=== PATIENT | male | born 1940 | race Caucasian/White ===

== ENCOUNTER → 2017-07-29 10:39 | Outpatient (CLI) | payer OTHER ==
[~2017-07-29] VITALS: Ht 152.4 cm; Wt 94.3 kg
[~2017-07-29 10:39] MED LIST: ASPIR 8181 MG PO; CELEBREX100 MG PO; COZAAR100 MG; COZAAR50 MG; COZAAR50 MG PO; GEMFIBROZIL600 MG PO; HYZAAR 100/25 T1 TAB; LIPITOR40 MG; LOPID 600 MG; MEDROLPACK PO; METFORMIN HCL500 MG PO; PLETAL100 MG PO; PROMETHAZINE W118 ML PO; TOPROL XL50 MG; TRENTAL 400 MG PO; ULTRAM50 MG PO; VASOFLEX D1 CA1 EACH; ZOCOR20 MG PO; ZOCOR40 MG; ZOCOR40 MG PO
== END | disposition home or self-care (01) ==
LOC: PPHC 10:39
DX: Z00.00 Encounter for general adult medical examination without abnormal findings (principal); M79.604 Pain in right leg

== ENCOUNTER 2017-07-29 13:26 | Outpatient (CLI) | payer OTHER | END 2017-07-29 13:37 | disposition home or self-care (01) | LOC: LAB 13:26 | DX: Z00.00 Encounter for general adult medical examination without abnormal findings (principal) ==

== ENCOUNTER → 2017-08-05 | Emergency (ER) | payer OTHER ==
[~2017-08-05] VITALS: Ht 152.4 cm; Wt 95.3 kg
== END | disposition home or self-care (01) ==
LOC: ER 13:15
DX: M79.662 Pain in left lower leg (principal); M25.562 Pain in left knee

== ENCOUNTER 2018-04-13 09:24 | Outpatient (CLI) | payer OTHER | END 2018-04-13 09:45 | disposition home or self-care (01) | LOC: LAB 09:24 | DX: I10 Essential (primary) hypertension (principal); E78.4 Other hyperlipidemia; R07.89 Other chest pain ==

== ENCOUNTER → 2018-05-20 | Emergency (ER) | payer OTHER ==
[~2018-05-20] VITALS: Ht 170.2 cm; Wt 95.3 kg
== END | disposition home or self-care (01) ==
LOC: ER 16:19
DX: S61.214A Laceration without foreign body of right ring finger without damage to nail, initial encounter (principal); W45.8XXA Other foreign body or object entering through skin, initial encounter; Y93.89 Activity, other specified; Y92.89 Other specified places as the place of occurrence of the external cause; Y99.8 Other external cause status

== ENCOUNTER 2018-06-08 08:19 | Emergency (ER) | payer OTHER ==
[~2018-06-08] VITALS: Ht 170.2 cm; Wt 97.5 kg
== END 2018-06-08 10:23 | disposition home or self-care (01) ==
LOC: ER 08:19
DX: Z48.02 Encounter for removal of sutures (principal)

== ENCOUNTER 2018-07-26 12:10 | Emergency (ER) | payer OTHER ==
[~2018-07-26] VITALS: Ht 170.2 cm; Wt 97.5 kg
== END 2018-07-26 18:11 | disposition home or self-care (01) ==
LOC: ER 12:10
DX: J09.X2 Influenza due to identified novel influenza A virus with other respiratory manifestations (principal); B34.9 Viral infection, unspecified

== ENCOUNTER 2018-08-06 10:34 | Outpatient (CLI) | payer OTHER | END 2018-08-06 10:42 | disposition home or self-care (01) | LOC: LAB 10:34 | DX: I10 Essential (primary) hypertension (principal); Z85.49 Personal history of malignant neoplasm of other male genital organs; E78.49 Other hyperlipidemia ==

== ENCOUNTER → 2018-12-26 09:35 | Outpatient (CLI) | payer OTHER | END | disposition home or self-care (01) | LOC: LAB 09:35 | DX: E78.49 Other hyperlipidemia (principal); I10 Essential (primary) hypertension; Z00.00 Encounter for general adult medical examination without abnormal findings; R42 Dizziness and giddiness ==

== ENCOUNTER → 2019-03-31 | Emergency (ER) | payer OTHER ==
[~2019-03-31] VITALS: Ht 167.6 cm; Wt 94.3 kg
[~2019-03-31] MED LIST changes: +ATACAND32 MG; +CARVEDILOL3.125 MG; +METFORMIN HCL750 MG; +NAPROXEN SODIU550 MG PO
== END | disposition home or self-care (01) ==
LOC: ER 08:32
DX: G89.29 Other chronic pain (principal); M79.652 Pain in left thigh; M25.562 Pain in left knee; M79.605 Pain in left leg; I87.2 Venous insufficiency (chronic) (peripheral)

== ENCOUNTER 2019-12-29 11:07 | Outpatient (CLI) | payer OTHER | END 2019-12-29 11:13 | disposition home or self-care (01) | LOC: LAB 11:07 | PROVIDERS: ATTEND Internal Medicine Cardiovascular Disease | DX: E11.9 Type 2 diabetes mellitus without complications (principal) ==

== ENCOUNTER 2020-04-07 12:50 | Outpatient (CLI) | payer OTHER | END 2020-04-07 13:12 | disposition home or self-care (01) | LOC: NUCLEAR 12:50 | PROVIDERS: ATTEND Internal Medicine Cardiovascular Disease | DX: I73.9 Peripheral vascular disease, unspecified (principal) ==

== ENCOUNTER → 2020-04-15 10:01 | Outpatient (CLI) | payer OTHER | END | disposition home or self-care (01) | LOC: LAB 10:01 | PROVIDERS: ATTEND General Practice | DX: N39.0 Urinary tract infection, site not specified (principal); I10 Essential (primary) hypertension; E03.8 Other specified hypothyroidism; E11.9 Type 2 diabetes mellitus without complications; E78.49 Other hyperlipidemia; E55.9 Vitamin D deficiency, unspecified ==

== ENCOUNTER → 2020-04-21 | Outpatient (CLI) | payer OTHER | END | disposition home or self-care (01) | LOC: RAD 09:46 | PROVIDERS: ATTEND Internal Medicine Pulmonary Disease | DX: M19.041 Primary osteoarthritis, right hand (principal); M19.042 Primary osteoarthritis, left hand ==

== ENCOUNTER 2020-09-30 09:10 | Outpatient (CLI) | payer OTHER | END 2020-09-30 09:13 | disposition home or self-care (01) | LOC: LAB 09:10 | PROVIDERS: ATTEND General Practice | DX: N40.0 Benign prostatic hyperplasia without lower urinary tract symptoms (principal); Z00.00 Encounter for general adult medical examination without abnormal findings; E78.49 Other hyperlipidemia; E55.9 Vitamin D deficiency, unspecified; R10.2 Pelvic and perineal pain; N39.0 Urinary tract infection, site not specified; I10 Essential (primary) hypertension ==

== ENCOUNTER 2021-05-09 08:46 | Outpatient (CLI) | payer OTHER | END 2021-05-09 08:47 | disposition home or self-care (01) | LOC: LAB 08:46 | DX: E11.9 Type 2 diabetes mellitus without complications (principal); R00.2 Palpitations; I11.9 Hypertensive heart disease without heart failure; E78.2 Mixed hyperlipidemia ==

== ENCOUNTER 2021-05-30 12:41 | Emergency (ER) | payer OTHER ==
[~2021-05-30] VITALS: Ht 167.6 cm; Wt 90.7 kg
[2021-05-30] MEDS ORDERED: NORVASC5 MG PO (13:27)
[2021-05-30] MEDS ORDERED: METFORMIN HCL1000 MG (13:27)
[2021-05-30] MEDS ORDERED: TAMS0.4C PO (13:28)
[2021-05-30] MEDS ORDERED: TESSALON PERLE100 M1 PO (15:34)
[2021-05-30] MEDS ORDERED: ZITHROMAX TRI-500 MG PO (15:34)
== END 2021-05-30 15:47 | disposition home or self-care (01) ==
LOC: ER 12:41
DX: B34.9 Viral infection, unspecified (principal); Z20.822 Contact with and (suspected) exposure to COVID-19

== ENCOUNTER 2021-11-07 06:50 | Outpatient (CLI) | payer OTHER | END 2021-11-07 07:10 | disposition home or self-care (01) | LOC: LAB 06:50 | PROVIDERS: ATTEND Internal Medicine Nephrology | DX: E11.22 Type 2 diabetes mellitus with diabetic chronic kidney disease (principal); N18.2 Chronic kidney disease, stage 2 (mild); R80.9 Proteinuria, unspecified; N31.1 Reflex neuropathic bladder, not elsewhere classified ==

== ENCOUNTER → 2021-11-07 | Outpatient (CLI) | payer OTHER ==
[~2021-11-07] MED LIST changes: +METFORMIN HCL1000 MG; +NORVASC5 MG PO; +TAMS0.4C PO; +TESSALON PERLE100 M1 PO; +ZITHROMAX TRI-500 MG PO
== END | disposition home or self-care (01) ==
LOC: TOM 08:07
PROVIDERS: ATTEND Urology
DX: N40.0 Benign prostatic hyperplasia without lower urinary tract symptoms (principal); R31.21 Asymptomatic microscopic hematuria; C61 Malignant neoplasm of prostate
CPT/HCPCS: 74178; Q9965

== ENCOUNTER 2021-11-15 09:22 | Outpatient (CLI) | payer OTHER | END 2021-11-15 09:24 | disposition home or self-care (01) | LOC: RAD 09:22 | PROVIDERS: ATTEND Urology | DX: N20.0 Calculus of kidney (principal) ==

== ENCOUNTER 2021-11-19 06:29 | Outpatient (CLI) | payer OTHER | END 2021-11-19 18:20 | disposition home or self-care (01) | LOC: LAB 06:29 | PROVIDERS: ATTEND Urology | DX: E11.22 Type 2 diabetes mellitus with diabetic chronic kidney disease (principal); N18.2 Chronic kidney disease, stage 2 (mild); R80.9 Proteinuria, unspecified; N20.0 Calculus of kidney ==

== ENCOUNTER 2022-02-27 13:31 | Outpatient (CLI) | payer OTHER | END 2022-02-27 14:01 | disposition home or self-care (01) | LOC: RAD 13:31 | PROVIDERS: ATTEND Student in an Organized Health Care Education/Training Program | DX: Z00.01 Encounter for general adult medical examination with abnormal findings (principal) ==

== ENCOUNTER 2022-03-05 08:07 | Outpatient (CLI) | payer OTHER | END 2022-03-05 08:22 | disposition home or self-care (01) | LOC: SONOGRAMA 08:07 | PROVIDERS: ATTEND Internal Medicine | DX: E11.22 Type 2 diabetes mellitus with diabetic chronic kidney disease (principal); N18.2 Chronic kidney disease, stage 2 (mild); M54.50 Low back pain, unspecified; R59.0 Localized enlarged lymph nodes ==

== ENCOUNTER 2022-08-20 11:54 | Outpatient (CLI) | payer OTHER | END 2022-08-20 12:10 | disposition home or self-care (01) | LOC: SONOGRAMA 11:54 | PROVIDERS: ATTEND Urology | DX: R31.1 Benign essential microscopic hematuria (principal) ==

== ENCOUNTER 2022-08-20 12:24 | Outpatient (CLI) | payer OTHER | END 2022-08-20 12:32 | disposition home or self-care (01) | LOC: RAD 12:24 | PROVIDERS: ATTEND Orthopaedic Surgery Sports Medicine | DX: M17.0 Bilateral primary osteoarthritis of knee (principal) ==